=== PATIENT | female | born 1990 | race American Indian/Alaskan Native ===

== ENCOUNTER 2016-12-09 08:48 | Outpatient (CLI) | payer OTHER ==
--- NOTE | 2016-12-09 10:25 | Ultrasound Report ---
Thyroid ultrasound: Thyromegaly; neck mass. The right thyroid lobe measures 1 x 1.7 x 4.7 cm and the left lobe measures 0.9 x 1.5 x 4.3 cm. Both lobes are minimally heterogeneous with normal contours. The right side of the isthmus is slightly thicker than the left. No focal mass identified in either lobe or isthmus. Color imaging shows no increased flow to either low. Impressions: Normal thyroid size. No mass identified.
== END 2016-12-09 08:49 | disposition home or self-care (01) ==
LOC: US 08:48
PROVIDERS: ATTEND Internal Medicine
DX: E07.9 Disorder of thyroid, unspecified (principal); R22.9 Localized swelling, mass and lump, unspecified
CPT/HCPCS: 76536